=== PATIENT | male | born 1985 | race Caucasian/White ===

== ENCOUNTER 2017-05-24 20:33 | Emergency (ER) | payer MEDICAID, SELFPAY ==
[2017-05-24 20:34] VITALS: BP 146/93; PULSE 87; RESP 12; TEMP 36.9; O2SAT 98; BMI 41.3
--- NOTE | 2017-05-24 20:43 | XR_ITS ---
XR chest 2V HISTORY: ITS.REASON: chest pain ORDERING PHYSICIAN: Delbert Leos MD PATIENT AGE: 32 years COMPARISON: None available FINDINGS: There is mild prominence of the left ventricle with borderline cardiomegaly. No CHF. The lungs are clear without infiltrates, suspicious nodules, or pleural effusions. No acute bony abnormalities. IMPRESSION: Borderline cardiomegaly with mild left ventricular prominence otherwise negative
--- NOTE | 2017-05-24 20:54 | [facility].EDCP ---
ED Disposition Clinical Impression: Palpitations Chest pain Qualifiers: Chest pain type: unspecified Qualified Code(s): R07.9 - Chest pain, unspecified Disposition: Home, Self-Care Condition on Discharge: Good Instructions: DI for Atypical Chest Pain, DI for Palpitations Additional Instructions: Please follow-up with Dr. Keaton Barrett, at your earliest convenience, regarding your palpitations and chest pains. Referrals: Alfredo Rome [Primary Care Provider] - Brendan Barrett MD [Staff Physician] - Time of Disposition: 23:37 - Critical Care Critical Care Time: No Attestation: On , the high probability of a clinically significant, sudden or life threatening deterioration of the following system(s) required my full and direct attention, intervention and personal management. The time I documented below is in addition to time spent performing reported procedures but includes the following listed in this critical care notation. Medical Decision Making - Medical Records Medical records reviewed: Yes: I reviewed the patient's medical records. Vital Signs: 05/24/17 20:34 05/24/17 22:17 05/24/17 23:44 Temperature 98.4 F 98.8 F Temperature Source Oral Oral Pulse Rate 82 Pulse Rate [Right Radial] 87 75 Respiratory Rate 12 12 14 Blood Pressure 148/86 Blood Pressure [Right Arm] 146/93 146/88 Blood Pressure Mean [Right Arm] 110 107 Blood Pressure Source Automatic Cuff Blood Pressure Source [Right Arm] Automatic Cuff Automatic Cuff Blood Pressure Position Sitting Blood Pressure Position [Right Arm] Supine Supine 02 Sat by Pulse Oximetry 98 100 Oxygen Delivery Method Room Air Room Air Room Air - Lab Data Lab results reviewed: Yes: I reviewed the patient's lab results. Lab Results 05/24/17 20:50: WBC 6.1, RBC 4.83, Hgb 13.7 L, Hct 41.5 L, MCV 85.9, MCH 28.4, MCHC 33.1, RDW 13.6, Plt Count 272, MPV 7.6, Neut % (Auto) 55.5, Lymph % (Auto) 34.3, [place] % (Auto) 7.5, Eos % (Auto) 1.9, Baso % (Auto) 0.8, Neut # (Auto) 3.4, Lymph # (Auto) 2.1, [place] # (Auto) 0.5, Eos # (Auto) 0.1, Baso # (Auto) 0.1, ESR 13 05/24/17 20:50: Sodium 141, Potassium 3.4 L, Chloride 103, Carbon Dioxide 29, Anion Gap 12.4, BUN 17, Creatinine 1.08, Estimated Creat Clear 96, Estimated GFR 78, Est GFR ( Amer) 95, Glucose 105, Calcium 9.5, Total Bilirubin 0.4, AST 29, ALT 57, Alkaline Phosphatase 79, Total Creatine Kinase 518 H*, CK-MB (CK-2) 1.3, CK-MB (CK-2) Rel Index 0.3, Troponin I < 0.02, Total Protein 8.4 H, Albumin 4.4, Globulin 4.0 H, Albumin/Globulin Ratio 1.1 Result diagrams: 05/24/17 20:50 05/24/17 20:50 Orders (Tests/Meds): ED MEDICATIONS Discontinued Medications Generic Name Dose Route Start Last Admin Trade Name Freq PRN Reason Stop Dose Admin Acetaminophen 1,000 mg 05/24/17 22:12 05/24/17 22:14 Tylenol 500mg Tablet PO 05/24/17 22:13 1,000 mg ONCE ONE Administration Sodium Chloride 1,000 mls @ 999 mls/hr 05/24/17 20:45 05/24/17 20:52 Sod Chlor 0.9% 1000ml Bag IV 05/24/17 21:45 999 mls/hr .Q1H1M OSMANI Administration Sodium Chloride 1,000 mls @ 999 mls/hr 05/24/17 22:15 05/24/17 22:09 Sod Chlor 0.9% 1000ml Bag IV 05/24/17 23:15 999 mls/hr .Q1H1M OSMANI Administration Morphine Sulfate 4 mg 05/24/17 23:20 05/24/17 23:21 Morphine 4mg/Ml Syringe IV 05/24/17 23:21 4 mg ONCE ONE Administration Ondansetron HCl 4 mg 05/24/17 22:12 05/24/17 22:14 Zofran 4mg/2ml Vial IV 05/24/17 22:13 4 mg ONCE ONE Administration - Radiology Data #1 Image(s): Chest Image Reviewed: Yes I reviewed the patient's radiology results Preliminary Findings: Normal/NAD - ECG Data Tracing #1 I reviewed this ECG and interpreted as documented below: ECG normal with no acute: arrhythmias, ischemia, conduction abnormalities, chamber hypertrophy Normal Sinus Rhythm: Yes - [place] Inquiry Pt receiving controlled substance: No - Reevaluation(s) Time: 23:35
[2017-05-24 21:09] LABS: Basophils # 0.1 K/mm3 (0-0.2); Basophils % 0.8 % (0.1-2.0); Eosinophils # 0.1 K/mm3 (0.0-0.4); Eosinophils % 1.9 % (0.1-12.0); Hematocrit 41.5 % (42.0-52.0); Hemoglobin 13.7 g/dL (14.1-18.0); Lymphocytes # 2.1 K/mm3 (0.7-4.5); Lymphocytes % 34.3 K/mm3 (10-50); Mean Corpuscular HGB Conc 33.1 g/dL (31.8-35.4); Mean Corpuscular Hemoglobin 28.4 pg (27.0-31.2); Mean Corpuscular Volume 85.9 fl (80-94); Mean Platelet Volume 7.6 fl (7.4-10.4); Monocytes # 0.5 K/mm3 (0.1-1.0); Monocytes % 7.5 % (1.7-9.3); Neutrophils # 3.4 K/mm3 (1.8-7.8); Neutrophils % 55.5 % (37.0-80.0); Platelet Count 272 K/mm3 (142-424); Red Blood Count 4.83 M/mm3 (4.60-6.20); Red Cell Distribution Width 13.6 % (11.5-17.5); White Blood Count 6.1 K/mm3 (4.8-10.8)
--- NOTE | 2017-05-24 21:20 | ED_ITS ---
ED Disposition Clinical Impression: Palpitations Chest pain Qualifiers: Chest pain type: unspecified Qualified Code(s): R07.9 - Chest pain, unspecified Disposition: Home, Self-Care Condition on Discharge: Good Instructions: DI for Atypical Chest Pain, DI for Palpitations Additional Instructions: Please follow-up with Dr. Keaton Barrett, at your earliest convenience, regarding your palpitations and chest pains. Referrals: Alfredo Rome [Primary Care Provider] - Brendan Barrett MD [Staff Physician] - Time of Disposition: 23:37 - Critical Care Critical Care Time: No Attestation: On , the high probability of a clinically significant, sudden or life threatening deterioration of the following system(s) required my full and direct attention, intervention and personal management. The time I documented below is in addition to time spent performing reported procedures but includes the following listed in this critical care notation. Medical Decision Making - Medical Records Medical records reviewed: Yes: I reviewed the patient's medical records. Vital Signs: 05/24/17 20:34 05/24/17 22:17 05/24/17 23:44 Temperature 98.4 F 98.8 F Temperature Source Oral Oral Pulse Rate 82 Pulse Rate [Right Radial] 87 75 Respiratory Rate 12 12 14 Blood Pressure 148/86 Blood Pressure [Right Arm] 146/93 146/88 Blood Pressure Mean [Right Arm] 110 107 Blood Pressure Source Automatic Cuff Blood Pressure Source [Right Arm] Automatic Cuff Automatic Cuff Blood Pressure Position Sitting Blood Pressure Position [Right Arm] Supine Supine 02 Sat by Pulse Oximetry 98 100 Oxygen Delivery Method Room Air Room Air Room Air - Lab Data Lab results reviewed: Yes: I reviewed the patient's lab results. Lab Results 05/24/17 20:50: WBC 6.1, RBC 4.83, Hgb 13.7 L, Hct 41.5 L, MCV 85.9, MCH 28.4, MCHC 33.1, RDW 13.6, Plt Count 272, MPV 7.6, Neut % (Auto) 55.5, Lymph % (Auto) 34.3, [place] % (Auto) 7.5, Eos % (Auto) 1.9, Baso % (Auto) 0.8, Neut # (Auto) 3.4 , Lymph # (Auto) 2.1, [place] # (Auto) 0.5, Eos # (Auto) 0.1, Baso # (Auto) 0.1, ESR 13 05/24/17 20:50: Sodium 141, Potassium 3.4 L, Chloride 103, Carbon Dioxide 29, Anion Gap 12.4, BUN 17, Creatinine 1.08, Estimated Creat Clear 96, Estimated GFR 78, Est GFR ( Amer) 95, Glucose 105, Calcium 9.5, Total Bilirubin 0.4 , AST 29, ALT 57, Alkaline Phosphatase 79, Total Creatine Kinase 518 H*, CK-MB ( CK-2) 1.3, CK-MB (CK-2) Rel Index 0.3, Troponin I < 0.02, Total Protein 8.4 H, Albumin 4.4, Globulin 4.0 H, Albumin/Globulin Ratio 1.1 Result diagrams: 05/24/17 20:50 05/24/17 20:50 Orders (Tests/Meds): ED MEDICATIONS Discontinued Medications Generic Name Dose Route Start Last Admin Trade Name Freq PRN Reason Stop Dose Admin Acetaminophen 1,000 mg 05/24/17 22:12 05/24/17 22:14 Tylenol 500mg Tablet PO 05/24/17 22:13 1,000 mg ONCE ONE Administration Sodium Chloride 1,000 mls @ 999 mls/hr 05/24/17 20:45 05/24/17 20:52 Sod Chlor 0.9% 1000ml Bag IV 05/24/17 21:45 999 mls/hr .Q1H1M OSMANI Administration Sodium Chloride 1,000 mls @ 999 mls/hr 05/24/17 22:15 05/24/17 22:09 Sod Chlor 0.9% 1000ml Bag IV 05/24/17 23:15 999 mls/hr .Q1H1M OSMANI Administration Morphine Sulfate 4 mg 05/24/17 23:20 05/24/17 23:21 Morphine 4mg/Ml Syringe IV 05/24/17 23:21 4 mg
[2017-05-24 21:36] LABS: Alanine Aminotransferase 57 U/L (12-78); Albumin Level 4.4 gm/dL (3.4-5.0); Albumin/Globulin Ratio 1.1 (1.1-1.8); Alkaline Phosphatase 79 U/L (46-116); Anion Gap 12.4 mEq/L (5-15); Aspartate Amino Transferase 29 U/L (15-37); Bilirubin,Total 0.4 mg/dL (0.2-1.0); Blood Urea Nitrogen 17 mg/dL (7-18); CKMB Relative Index 0.3 U/L (0-4.0); Calcium 9.5 mg/dL (8.5-10.1); Carbon Dioxide 29 mmol/L (21.0-32.0); Chloride 103 mmol/L (98-107); Creatine Kinase 518 U/L (39-308); Creatine Kinase MB 1.3 mg/ml (0.0-3.6); Creatinine Clearance Estimated 96 mL/min (0-300); Creatinine,Serum 1.08 mg/dL (0.70-1.30); Estimated Glomerular Filt Rate 78 ml/min (>60); GFR (African American) 95 ML/MIN (>60); Glucose 105 mg/dL (74-106); Potassium 3.4 mmoL/L (3.5-5.1); Sodium 141 mmol/L (136-145); Total Protein,Serum 8.4 gm/dL (6.4-8.2); Troponin I < 0.02 ng/ml (0.00-0.06)
[2017-05-24 22:17] VITALS: BP 146/88; PULSE 75; RESP 12; O2SAT 100
[2017-05-24 22:27] LABS: Erythrocyte Sedimentation Rate 13 mm/hr (0-15)
[2017-05-24 23:44] VITALS: BP 148/86; PULSE 82; RESP 14; TEMP 37.1; O2SAT 98
== END 2017-05-24 23:45 | disposition home or self-care (01) ==
PROVIDERS: Emergency Provider Emergency Medicine; Family Provider Nurse Practitioner Pediatrics; PCP Pediatrics
DX: R07.9 Chest pain, unspecified (principal); R51 Headache; Z88.6 Allergy status to analgesic agent
CPT/HCPCS: 71046; 80053; 82550; 82553; 84484; 85025; 85651; 93005; 96365; 96367; 96375; 99283; J2405